=== PATIENT | female | born 1995 | race Caucasian/White ===

== ENCOUNTER 2017-04-04 02:18 | Emergency (ER) | payer OTHER ==
[~2017-04-04] VITALS: Ht 160 cm; Wt 54.4 kg
--- NOTE | ~2017-04-04 | CT71 ---
[facility] A Service [facility] RADIOLOGY TEXT RESULTS PATIENT: BOBBY VASQUEZ LOCATION: [place] : [birth year] UNIT #: [id number] AGE: [address]: Zenai Urban APRN SEX: F ORDER DR: [id number] [facility]. [place], [place] [address] [id number] E MR#: [id number] Acc #: [id number] NAME: BOBBY VASQUEZ : 1995 SEX: F STUDY DATE/TIME: 04/04/2017 4:49 UNIT: [facility] ROOM: STUDY DESCRIPTION: CT Head Wo Contrast Attending Physician: Zenia Urban A.P.R.N. Ordering Physician: Zenia Urban A.P.R.N. Primary Care Physician: No Primary Care Physician MEDICAL IMAGING REPORT This report is preliminary unless electronic signature is present EXAM CT head without contrast INDICATIONS Head pain after an injury yesterday. PROCEDURE Unenhanced CT of the head. TECHNIQUE This CT exam was performed with one or more of the following radiation dose reduction techniques: automatic exposure control, adjustment of mA and/or kV according to patient size, and iterative reconstruction. FINDINGS No acute hemorrhage, abnormal mass effect, extraaxial collection or hydrocephalus. No depressed calvarial fracture. The paranasal sinuses and mastoid air cells are clear. IMPRESSION No acute intracranial findings Dictated by... Arun Dubon M.D. THIS IS AN ELECTRONICALLY VERIFIED REPORT Arun Dubon M.D. at 04/04/2017 10:25 PM [email or web address]/yudy TD: 04/04/2017 09:58 JOB #: [id number] [facility] A Service of [facility] RADIOLOGY TEXT RESULTS PATIENT: BOBBY VASQUEZ LOCATION: [facility] : [birth year] UNIT #: [id number] AGE: [address]: Zenia Urban APRN SEX: F ORDER DR: MEDICAL IMAGING REPORT Page 1 of 1 COPY
--- NOTE | ~2017-04-04 | CR58 ---
[facility] A Service of [facility] RADIOLOGY TEXT RESULTS PATIENT: BOBBY VASQUEZ LOCATION: [facility] : [birth year] UNIT #: [id number] AGE: [address]: Zenia Urban APRN SEX: F ORDER DR: [id number] [facility] [address] [place], [place] [address] [id number] E MR#: [id number] Acc #: [id number] NAME: BOBBY VASQUEZ : 1995 SEX: F STUDY DATE/TIME: 04/04/2017 4:54 UNIT: [facility] ROOM: STUDY DESCRIPTION: CR Cervical Spine 2 or 3 Views Attending Physician: Zenia Urban A.P.R.N. Ordering Physician: Zenia Urban A.P.R.N. Primary Care Physician: No Primary Care Physician MEDICAL IMAGING REPORT This report is preliminary unless electronic signature is present EXAM Cervical spine series INDICATIONS Neck pain after injury 2 days ago. PROCEDURE Five views cervical spine. FINDINGS Cervical bodies have normal height alignment is preserved. Craniocervical junction prevertebral soft tissues and the dens are intact. IMPRESSION No acute findings Dictated by... Arun Dubon M.D. THIS IS AN ELECTRONICALLY VERIFIED REPORT Arun Dubon M.D. at 04/04/2017 10:25 PM JAVAD/yudy TD: 04/04/2017 09:59 JOB #: [id number] MEDICAL IMAGING REPORT Page 1 of 1 COPY
[2017-04-04 04:35] LABS: URINE SOURCE CLEAN CATCH
[2017-04-04 04:41] LABS: URINE APPEARANCE TURBID; URINE BILIRUBIN NEG (NEG); URINE BLOOD 3+ (NEG); URINE COLOR YELLOW; URINE GLUCOSE NEG (NEG); URINE KETONE TRACE (NEG); URINE LEUKOCYTE ESTERASE TRACE (NEG); URINE NITRATE NEG (NEG); URINE PROTEIN TRACE (NEG); URINE SPECIFIC GRAVITY 1.023 (1.003-1.035)
[2017-04-04 04:44] LABS: CULTURE INDICATED? YES; URINE BACTERIA AUWI 2+ (NEGATIVE); URINE SQUAMOUS EPITHELIAL CELL MOD /[HPF]
[2017-04-04 05:00] LABS: URINE AMORPHOUS SEDIMENT AMORP PHOSPHATES; URINE GRANULAR CAST 0-2 /[HPF]
[2017-04-04 05:03] LABS: AMPHETAMINE POS (NEG); BARBITURATES NEG (NEG); BENZODIAZEPINES NEG (NEG); COCAINE NEG (NEG); MARIJUANA POS (NEG); OPIATES NEG (NEG); TRICYCLIC ANTIDEPRESSANTS NEG (NEG); U METHADONE NEG (NEG)
[2017-04-06 20:11] LABS: CHLAMYDIA TRACH Not Detected (Not Detected); N GONOR Not Detected (Not Detected)
== END 2017-04-04 06:38 | disposition home or self-care (01) ==
LOC: CED 02:18
PROVIDERS: Nurse Practitioner
DX: S00.93XA Contusion of unspecified part of head, initial encounter (principal); N39.0 Urinary tract infection, site not specified; F17.210 Nicotine dependence, cigarettes, uncomplicated; F19.10 Other psychoactive substance abuse, uncomplicated; W22.8XXA Striking against or struck by other objects, initial encounter
CPT/HCPCS: 70450; 72040; 80307; 81003; 84703; 87086; 87491; 87591; 87808; 87905; 99284